=== PATIENT | male | born 1930 | race Asian ===

== ENCOUNTER 2018-04-09 12:28 | Inpatient (IN) | payer OTHER ==
[~2018-04-09] VITALS: Ht 162.6 cm; Wt 73.5 kg
[2018-04-09 12:50] VITALS: Ht 162.6 cm; Wt 73.5 kg
--- NOTE | 2018-04-09 13:56 | NUR ---
PT BIB DAUGHTER C/O DIZZINESS X 2WEEKS. DENIES ANY CHEST PAIN. PT IS AAOX4, ABLE TO FOLLOW COMMANDS AND CAN VERBALIZE NEEDS. NO NUERO DEFICITS. PT DENIES -N/V AT THIS TIME. PT ABLE TO AMBULATE WITH A STEADY GAIT BUT STS HE "FEELS DIZZY WHEN WLAKING." RESPS E/U, SKIN IS PINK, WARM, AND DRY. PT GOWNED, PLACED ON FULL CM, AND BED IN LOWEST POSITION. AWAITING MD TO PERFORM MSE.
--- NOTE | 2018-04-09 14:16 | NUR ---
PT TO CT VIA [facility]
--- NOTE | 2018-04-09 14:18 | NUR ---
PT TAKEN TO CT [facility]IA [facility]
[2018-04-09 14:49] LABS: CALCIUM 7.9 mg/dL (8.5-10.1); CARBON DIOXIDE 25.7 mmol/L (21-32); CHLORIDE SERUM 101 mmol/L (98-107); GLUCOSE SERUM 101 mg/dL (74-106); POTASSIUM SERUM 4.3 mmol/L (3.5-5.1); SODIUM SERUM 133 mmol/L (136-145)
[2018-04-09 14:53] LABS: ALBUMIN 2.2 g/dL (3.4-5.0); ALKALINE PHOSPHATASE 56 U/L (46-116); ALT/SGPT 17 U/L (16-63); AST/SGOT 14 U/L (15-37); BILIRUBIN TOTAL 0.3 mg/dL (0.20-1.00); TOTAL PROTEIN, SERUM 5.9 g/dL (6.4-8.2)
[2018-04-09 14:54] LABS: BASOPHIL % 0.7 % (0-2); PLATELET COUNT 389 x10^3mcL (130-400)
[2018-04-09 14:58] LABS: RED CELL DISTRIBUTION WIDTH 15.4 % (11.5-14.5)
--- NOTE | 2018-04-09 15:35 | NUR ---
EDUCATED PT ON TRANSFUSION INFORMATION. PT VERBALIZED UNDERSTANDING OF PLAN OF CARE AND SIGNED CONSENT. PT DENIES ANY FURTHER QUESTIONS. PT IS AAOX4, SPEAKING FULL SENTENCES, ABLE TO FOLLOW COMMANDS ADN VERBALIZE NEEDS.
--- NOTE | 2018-04-09 15:41 | NUR ---
EDUCATED PT ON TRANSFUSION INFORMATION. PT VERBALIZED UNDERSTANDING OF PLAN OF CARE AND SIGNED CONSENT. PT DENIES ANY FURTHER QUESTIONS. PT IS AAOX4, SPEAKING IN FULL SENTENCES, ABLE TO FOLLOW COMMANDS ADN VERBALIZE NEEDS.
--- NOTE | 2018-04-09 15:44 | NUR ---
INSTRUCTED PT O FNEED FOR URINE SAMPLE. PT REPORTS HE IS UNABLE TO PROVIDE AT THIS TIME. NOTIFIED .
--- NOTE | 2018-04-09 16:09 | NUR ---
GAVE REPORT TO YIMI SMITH WHO WILL RESUME FURTHER CARE OF THE PATIENT.
[2018-04-09 16:44] LABS: CHOLESTEROL/HDL RATIO 2.9; MAGNESIUM 2.1 mg/dL (1.8-2.4); PHOSPHOROUS 3.6 mg/dL (2.5-4.9)
[2018-04-09 16:49] LABS: rbc morphology (normal/abnorm) ABNORMAL (NORMAL)
[2018-04-09 16:55] LABS: T3 TOTAL 0.57 ng/mL
[2018-04-09 16:58] LABS: FREE T4 1.08 ng/dL (0.76-1.46)
[2018-04-09 16:59] LABS: FREE THYROXINE INDEX 1.8 ug/dL (1.4-4.5); T4(THYROXINE) 4.4 ug/dL (4.7-13.3)
[2018-04-09 17:04] VITALS: BP 115/47
--- NOTE | 2018-04-09 17:28 | NUR ---
RECEIVED PT FROM ER. PT ADMIT FOR ANEMIA, DIZZINESS, PT IS A/O X4, VERBAL RESPONSIVE, [id number], POOR VISION, LUNG SOUND CLEAR BILATERAL, NO COUGH, NO SOB, PT DENY ANY CHEST PAIN OR DISCOMFORT, BOWEL SOUND PRESENT ALL 4 QUADRANTS, NO DISTENTION, NO TENDER. BUT PT C/O LAST BM IS DARK RED, DR. PERSON INFORMED. PEDAL PULSE PRESENT BOTH FEET, NO EDEMA, IV AT RIGHT UPPER ARM, ALL ADLS ASSIST, ALL NEED MET, CALL LIGHT IN REACH, WILL CONTINUE TOMONITOR.
--- NOTE | 2018-04-09 18:06 | NUR ---
1 PRBC STARTED AT 1740. V/S STABLE. POST 15 MIN TRANSFUSION V/S CHECK STABLE. NO REACTION NOTED. RATE INCREASED TO 120 ML/HR. WILL CONTINUE TO MONITOR. CHECK WITH MADIE SMITH
--- NOTE | 2018-04-09 19:30 | NUR ---
RECIEVED PATIENT AT START OF SHIFT AWAKE AND ALERT. MANDARIN SPEAKING ONLY. FOLLOWS COMMANDS. PATIENT IS RECIEVING 1 UNIT PRBC. NO SIGNS OF TRANSFUSION REACTION THUS FAR. TRANSFUSION WILL FINISH AT 2019 AND CBC WILL BE DRAWN AT 2099. NO COMPLAINTS OF PAIN. NO SOB ON RA. ABDOMEN SOFT AND NONTENDER. BED LOCKED AND IN LOWEST POSITION. CALL LIGHT AND BEDSIDE TABLE WITHIN REACH. WILL CONTINUE TO MONITOR.
--- NOTE | 2018-04-09 20:34 | NUR ---
PATIENT'S TRANSFUSION IS COMPLETE. NEW VITALS ARE WNL. NO SX OF TRANFUSION REACTION. WILL ADMINISTER LASIX PER EMAR.
[2018-04-09 22:11] LABS: BASOPHIL % 0.8 % (0-2); PLATELET COUNT 313 x10^3mcL (130-400)
[2018-04-09 22:12] LABS: RED CELL DISTRIBUTION WIDTH 17.6 % (11.5-14.5)
--- NOTE | 2018-04-10 00:07 | NUR ---
NEW LABS SHOWED HEMOGLOBIN INCREASED FROM 6.8 TO 7.8. MAYTE LEE WAS NOTIFIED. NO NEW ORDERS AT THIS TIME.
--- NOTE | 2018-04-10 01:39 | NUR ---
CONSENT FOR EGD/COLONOSCOPY, ANESTHESIA, AND PRE-OP CHECKLIST ARE IN THE CHART AND STILL NEED TO BE SIGNED BY BOTH PATIENT AND PHYSICIAN. PATIENT HAS BEEN NPO SINCE ADMISSION 04/09. LACTULOSE BOWEL PREP ADMIN AT 2100. STILL NO BM. WILL CONTINUE TO MONITOR.
[2018-04-10 04:44] VITALS: BP 112/66
[2018-04-10 05:09] VITALS: BP 97/45
[2018-04-10 05:15] VITALS: BP 98/49
--- NOTE | 2018-04-10 06:56 | NUR ---
BLUE PHONE WAS USED TO TRANSLATE TO PATIENT THAT HE IS NPO FOR HIS EGD AND COLONOSCOPY TODAY. PATIENT WAS ENCOURAGED TO HAVE A BM. PATIENT STATED HE DOESNT FEEL LIKE HE NEEDS TO GO. NO FURTHER SIGNIFICANT EVENTS THIS SHIFT. WILL ENDORSE CARE TO MORNING NURE.
[2018-04-10 07:38] LABS: CALCIUM 7.6 mg/dL (8.5-10.1); CARBON DIOXIDE 28.2 mmol/L (21-32); CHLORIDE SERUM 105 mmol/L (98-107); CREATININE SERUM 1.2 mg/dL (0.7-1.3); GLUCOSE SERUM 82 mg/dL (74-106); POTASSIUM SERUM 4.7 mmol/L (3.5-5.1); SODIUM SERUM 139 mmol/L (136-145)
--- NOTE | 2018-04-10 07:40 | NUR ---
RECEIVED PATIENT RESTING IN BED, FAMILY AT BEDSIDE. PATIENT C/O MILD DIZZINESS. PATIENT IS MAKAH WITH POOR VISION NOTED. NO RESPIRATORY DISTRESS NOTED, PATIENT ON ROOM AIR. BOWEL SOUNDS ACTIVE X4. PATIENT IS ABLE TO AMBULATE WITH ASSIST. IV TO DOUG CDI, AND PATENT. NO REDNESS, SWELLING OR PAIN NOTED. WILL CONTINUE TO MONITOR FOR CHANGES.
[2018-04-10 08:00] LABS: BASOPHIL % 0.6 % (0-2); PLATELET COUNT 339 x10^3mcL (130-400)
[2018-04-10 08:01] LABS: RED CELL DISTRIBUTION WIDTH 17.2 % (11.5-14.5)
[2018-04-10 08:30] VITALS: BP 110/58
--- NOTE | 2018-04-10 09:30 | NUR ---
DR CARROLL AT BEDSIDE WITH PATIENT, AND FAMILY. SPOKE TO PATIENT ABOUT EGD/COLONOSCOPY PROCEDURE. PATIENT REFUSED TO HAVE PROCEDURE DONE, DOCTOR SPOKE ABOUT POSSIBLE RISK AND COMPLICATIONS IF PROCEDURE IS NOT PERFORMED. PATIENT STILL REFUSED. WILL CONTINE TO [facility] PATIENT FOR CHANGES.
--- NOTE | 2018-04-10 10:30 | NUR ---
PATIENT AWARE TO REMAIN NPO FOR AN ABDOMINAL US. PATIENT ALSO AWARE WE WILL NEED TO COLLECT A STOOL SAMPLE. WILL CONTINUE TO MONITOR PATIENT.
[2018-04-10 11:41] LABS: IRON 55 ug/dL (65-170)
[2018-04-10 11:44] LABS: TOTAL IRON BINDING CAPACITY 221 ug/dL (250-450)
--- NOTE | 2018-04-10 15:50 | NUR ---
PATIENT AMBULATED TO THE BR WITH ASSIST, STEADY GAIT NOTED. PATIENT WAS ABLE TO PASS BM, STOOL SAMPLE COLLECTED AND SENT TO LAB. NO DARK OR BLOODLY STOOLS NOTED. WILL CONTINUE TO MONITOR FOR CHANGES.
[2018-04-10 17:00] VITALS: BP 106/53
--- NOTE | 2018-04-10 18:00 | NUR ---
PATIENT RESTING IN BED, PT DENIES PAIN AT THIS TIME. NO ACUTE CHANGES THROUGHT SHIFT, PT IS STABLE. IV TO DOUG SALINE LOCK, CDI AND PATENT. NO RESP DISTRESS NOTED, PATIENT ON ROOM AIR. PT IS NPO SINCE LUNCH, PT IS TO HAVE AN US OF ABDOMEN DONE. WILL ENDORSE REPORT TO NIGHT NURSE.
--- NOTE | 2018-04-10 19:35 | NUR ---
RECIEVED PATIENT AT START OF SHIFT AWAKE AND ALERT. NO SOB ON RA, NO COMPLAINT OF PAIN. PATIENT HAS BEEN NPO SINCE LUNCH TODAY FOR ABDOMINAL US. IV IS SALINE LOCKED AND PATENT. BED LOCKED AND IN LOWEST POSITION. CALL LIGHT AND BEDSIDE TABLE WITHIN REACH. WILL CONTINUE TO MONITOR.
--- NOTE | 2018-04-10 21:45 | NUR ---
PATIENT'S ABDOMINAL ULTRASOUND WAS PERFORMED AND RESULTS ARE IN. PATIENT RESUMED REGULAR DIET AND IS TOLERATING WELL. WILL CONTINUE TO MONITOR
[2018-04-10 21:57] VITALS: BP 103/55
--- NOTE | 2018-04-11 01:00 | NUR ---
PATIENT'S EYES ARE CLOSED, BREATHS EVEN AND REGULAR. NO ACUTE CHANGES. WILL CONTINUE TO MONITOR.
[2018-04-11 05:39] VITALS: BP 97/53
[2018-04-11 06:40] LABS: CALCIUM 7.6 mg/dL (8.5-10.1); CARBON DIOXIDE 26.7 mmol/L (21-32); CHLORIDE SERUM 102 mmol/L (98-107); CREATININE SERUM 1.2 mg/dL (0.7-1.3); GLUCOSE SERUM 76 mg/dL (74-106); POTASSIUM SERUM 3.9 mmol/L (3.5-5.1); SODIUM SERUM 135 mmol/L (136-145)
[2018-04-11 06:52] LABS: BASOPHIL % 0.5 % (0-2); PLATELET COUNT 348 x10^3mcL (130-400)
[2018-04-11 06:53] LABS: RED CELL DISTRIBUTION WIDTH 17.7 % (11.5-14.5)
--- NOTE | 2018-04-11 07:01 | NUR ---
NO SIGNIFICANT EVENTS OVERNIGHT. WILL ENDORSE CARE TO MORNING NURSE.
--- NOTE | 2018-04-11 07:40 | NUR ---
RECEIVED AWAKE AND ALERT. IN NO ACUTE DISTRESS. VS STABLE. HL PATENT. NO C/O PAIN OR DISCOMFORT AT THIS TIME. WILL CONTINUE WITH PLAN OF CARE.
[2018-04-11 10:10] VITALS: BP 98/51
[2018-04-11] MEDS ORDERED: FERROUS SULFAT325 M2 PO (13:00)
[2018-04-11] MEDS ORDERED: PROTONIX40 MG PO (13:00)
[2018-04-11 13:09] VITALS: BP 98/51
--- NOTE | 2018-04-11 14:29 | NUR ---
PT WILL BE DC'D BACK HOME THIS PM, WAITING FOR FAMILY. IN NO DISTRESS. RESTING COMFORTABLY. NO C/O PAIN OR DISCOMFORT.
--- NOTE | 2018-04-11 14:50 | NUR ---
DC INSTRUCTIONS REVIEWED WITH PT AND DAUGHTER. RX GIVEN. HL REMOVED AND SITE WITH NO REDNESS OR SWELLING. PT DENIES PAIN OR DISCOMFORT. NO ACTIVE GI BLEED NOTED.
--- NOTE | 2018-04-11 15:03 | NUR ---
DC'D HOME WITH DAUGHTER, NO DISTRESS, NO C/O PAIN OR DISCOMFORT. PERSONLA BELONGINGS TAKEN HOME.
== END 2018-04-11 14:59 | disposition home or self-care (01) | DRG 48 ==
LOC: ED 12:28 → MU 15:37
PROVIDERS: Emergency Medicine; Internal Medicine Gastroenterology; ADMIT General Practice
PROC: 30233N1 Transfusion of Nonautologous Red Blood Cells into Peripheral Vein, Percutaneous Approach (ICD-10-PCS; principal; 2018-04-09)
DX: G90.9 Disorder of the autonomic nervous system, unspecified (principal); N17.0 Acute kidney failure with tubular necrosis; E43 Unspecified severe protein-calorie malnutrition; I95.9 Hypotension, unspecified; D64.9 Anemia, unspecified; E87.1 Hypo-osmolality and hyponatremia; E83.51 Hypocalcemia; I10 Essential (primary) hypertension; Z98.41 Cataract extraction status, right eye; Z98.42 Cataract extraction status, left eye; Z68.1 Body mass index [BMI] 19.9 or less, adult
CPT/HCPCS: 84439; 97112-GP; C9113; J2916; J7030; J7050; J8597; P9016; Q0092; Q0162; Q0163

== ENCOUNTER 2018-04-30 20:37 | Inpatient (IN) | payer OTHER ==
[~2018-04-30] VITALS: Ht 165.1 cm; Wt 36.4 kg
[~2018-04-30 20:37] MED LIST: FERROUS SULFAT325 M2 PO; PROTONIX40 MG PO
[2018-04-30 20:55] VITALS: Ht 165.1 cm; Wt 36.4 kg
[2018-04-30 22:23] LABS: BASOPHIL % 0.5 % (0-2); PLATELET COUNT 383 x10^3mcL (130-400)
[2018-04-30 22:27] LABS: RED CELL DISTRIBUTION WIDTH 22.1 % (11.5-14.5)
[2018-04-30 22:45] LABS: CALCIUM 7.7 mg/dL (8.5-10.1); CARBON DIOXIDE 29.3 mmol/L (21-32); CHLORIDE SERUM 106 mmol/L (98-107); CREATININE SERUM 0.9 mg/dL (0.7-1.3); GLUCOSE SERUM 97 mg/dL (74-106); POTASSIUM SERUM 4.3 mmol/L (3.5-5.1); SODIUM SERUM 138 mmol/L (136-145)
[2018-04-30 22:49] LABS: ALKALINE PHOSPHATASE 53 U/L (46-116); ALT/SGPT 12 U/L (16-63); AST/SGOT 18 U/L (15-37); BILIRUBIN TOTAL 0.2 mg/dL (0.20-1.00); LIPASE 300 IU/L (73-393)
[2018-04-30 22:55] LABS: TOTAL PROTEIN, SERUM 5.4 g/dL (6.4-8.2)
[2018-04-30 23:55] LABS: rbc morphology (normal/abnorm) ABNORMAL (NORMAL)
[2018-04-30 23:56] LABS: acanthocyte (spur cell) 1+; ovalocyte/elliptocyte 1+
[2018-05-01] VITALS (11 sets, daily range): BP systolic 92–126; BP diastolic 46–67
[2018-05-01 00:50] LABS: FREE T4 1.03 ng/dL (0.76-1.46)
[2018-05-01 01:36] LABS: microscopic required? NO
[2018-05-01 01:51] LABS: UA SPECIFIC GRAVITY 1.025 (1.005-1.035); urine erythrocyte NEGATIVE (NEGATIVE)
[2018-05-01 02:00] LABS: T3 TOTAL 0.6 ng/mL
[2018-05-01 03:30] LABS: AMPHETAMINE QUAL UR NONE DETECTED (See below)
[2018-05-01 18:20] LABS: BASOPHIL % 0.5 % (0-2); PLATELET COUNT 329 x10^3mcL (130-400)
[2018-05-01 18:22] LABS: RED CELL DISTRIBUTION WIDTH 19.1 % (11.5-14.5)
[2018-05-01 19:14] LABS: CALCIUM 7.3 mg/dL (8.5-10.1); CARBON DIOXIDE 25.5 mmol/L (21-32); CHLORIDE SERUM 105 mmol/L (98-107); GLUCOSE SERUM 80 mg/dL (74-106); POTASSIUM SERUM 4.3 mmol/L (3.5-5.1); SODIUM SERUM 138 mmol/L (136-145)
[2018-05-02 04:59] VITALS: BP 121/67
[2018-05-02 06:25] LABS: BASOPHIL % 0.4 % (0-2); PLATELET COUNT 374 x10^3mcL (130-400)
[2018-05-02 06:26] LABS: RED CELL DISTRIBUTION WIDTH 18.9 % (11.5-14.5)
[2018-05-02 06:45] LABS: CALCIUM 7.7 mg/dL (8.5-10.1); CARBON DIOXIDE 27.4 mmol/L (21-32); CHLORIDE SERUM 107 mmol/L (98-107); CREATININE SERUM 1.1 mg/dL (0.7-1.3); GLUCOSE SERUM 76 mg/dL (74-106); POTASSIUM SERUM 4.3 mmol/L (3.5-5.1); SODIUM SERUM 140 mmol/L (136-145)
[2018-05-02 09:00] VITALS: BP 115/56
[2018-05-02 12:54] VITALS: BP 115/56
[2018-05-02 13:12] VITALS: BP 117/64
== END 2018-05-02 13:30 | disposition home or self-care (01) | DRG 240 ==
LOC: ED 20:37 → DU 23:17
PROVIDERS: Emergency Medicine; Internal Medicine; ADMIT Internal Medicine
PROC: 30233N1 Transfusion of Nonautologous Red Blood Cells into Peripheral Vein, Percutaneous Approach (ICD-10-PCS; principal; 2018-05-01)
PROC: 0DBL8ZZ Excision of Transverse Colon, Via Natural or Artificial Opening Endoscopic (ICD-10-PCS; 2018-05-02 08:30)
PROC: 0DB68ZX Excision of Stomach, Via Natural or Artificial Opening Endoscopic, Diagnostic (ICD-10-PCS; 2018-05-02 08:30)
DX: C16.9 Malignant neoplasm of stomach, unspecified (principal); N17.0 Acute kidney failure with tubular necrosis; E43 Unspecified severe protein-calorie malnutrition; K27.4 Chronic or unspecified peptic ulcer, site unspecified, with hemorrhage; E83.51 Hypocalcemia; C19 Malignant neoplasm of rectosigmoid junction; D64.9 Anemia, unspecified; I10 Essential (primary) hypertension; Z68.1 Body mass index [BMI] 19.9 or less, adult
CPT/HCPCS: 43235; 45378; 84439; 92526-GN; 92610; 97116-GP; C9113; J1200; J1610; J2250; J2310; J3010; J3490; J7030; J7050; P9016; Q0092; Q0163